=== PATIENT | male | born 1975 | race Caucasian/White ===

== ENCOUNTER 2016-05-18 08:25 | Emergency (ER) | payer MEDICAID ==
[~2016-05-18] VITALS: Wt 98.0 kg
[~2016-05-18 08:25] MED LIST: ASPI325T4 PO; AUG875 PO; CIPR500T4 PO; D-ME118S6 PO; DESL5TAB20 PO; IBUP-1542 PO; NASO17 NASAL; OLOP5DRO12 BOTH EYES; PRED20TA PO
[2016-05-18] MEDS ORDERED: FAMOTIDINE 20 MG TAB PO STA (09:25)
[2016-05-18] MEDS ORDERED: LIDOCAINE/MYLANTA 40 ML BTL PO STA (09:26)
[2016-05-18] MEDS ORDERED: BELLADONNA/PHENOBARBITAL TAB PO STA (09:26)
--- NOTE | 2016-05-18 09:57 | RADRPT ---
PROCEDURE: XR Chest. CLINICAL INDICATION: Abdominal pain. TECHNIQUE: Single frontal view of the chest was obtained COMPARISON: Chest x-ray 09/29/2049 11:56 p.m. FINDINGS: The soft tissues are normal. The bony elements are normal. The heart, left side aorta, cardiomedias tinal silhouette, pulmonary vasculature and hilar structures are normal. The lungs are clear. The co stophrenic angles are normal. There has been no change compared to the prior study. IMPRESSION: 1. Normal chest x-ray. RPTAT:AAJJ Physician Juany Date Time Electronically viewed and signed by Fortino Bashir Physician on 05/18/2016 09:57 /
[2016-05-18 10:25] LABS: BASOPHIL # 0.1 10^3/ul (0.0-0.1); BASOPHILS % 1.2 % (0.0-2.0); EOSINOPHILS # 0.4 10^3/ul (0.0-0.5); EOSINOPHILS % 5.2 % (0.0-7.0); HEMATOCRIT 44.1 % (42.0-52.0); HEMOGLOBIN 15.3 g/dl (14.0-18.0); LYMPHOCYTES # 1.8 10^3/ul (0.8-2.9); LYMPHOCYTES % 24.9 % (15.0-51.0); MEAN CORPUSCULAR HEMOGLOBIN 29.8 pg (29.0-33.0); MEAN CORPUSCULAR HGB CONC 34.7 g/dl (32.0-37.0); MEAN CORPUSCULAR VOLUME 85.7 fl (82.0-101.0); MEAN PLATELET VOLUME 10.8 fl (7.4-10.4); MONOCYTE # 0.6 10^3/ul (0.3-0.9); MONOCYTES % 8.2 % (0.0-11.0); NEUTROPHIL # 4.5 10^3/ul (1.6-7.5); NEUTROPHILS % 60.5 % (39.0-77.0); PLATELET COUNT 265 10^3/UL (140-440); RED BLOOD COUNT 5.15 10^6/ul (4.70-6.10); RED CELL DISTRIBUTION WIDTH 13.1 % (11.5-14.5); UNCORRECTED WBC 7.4 10^3/ul (4.8-10.8); WHITE BLOOD COUNT 7.4 10^3/ul (4.8-10.8)
[2016-05-18 10:31] LABS: ALBUMIN 4.4 g/dl (3.3-4.9); CHLORIDE 105 mmol/L (97-110); CONDITION 1
[2016-05-18 10:32] LABS: POTASSIUM 4.1 mmol/L (3.5-5.1); SODIUM 145 mmol/L (135-144)
[2016-05-18 10:34] LABS: ALBUMIN/GLOBULIN RATIO 1.41; AMYLASE 86 U/L (11-123); ANION GAP 17 (8-16); BILIRUBIN,INDIRECT 0.2 mg/dl (0-1.1); BILIRUBIN,TOTAL 0.2 mg/dl (0.2-1.3); BLOOD UREA NITROGEN 9 mg/dl (7-20); CARBON DIOXIDE 27 mmol/L (21-31); TOTAL PROTEIN 7.5 g/dl (6.1-8.1)
[2016-05-18 10:35] LABS: ALANINE AMINOTRANSFERASE 32 IU/L (13-69); ALKALINE PHOSPHATASE 122 IU/L (42-121); ASPARTATE AMINO TRANSFERASE 26 IU/L (15-46); CALCIUM 9.1 mg/dl (8.4-10.2); GLUCOSE 102 mg/dl (70-220)
[2016-05-18 10:46] LABS: TROPONIN-I < 0.012 ng/ml (0.00-0.12)
[2016-05-18] MEDS ORDERED: ONDANSETRON (ODT) 4 MG TAB ODT STA (10:49)
--- NOTE | 2016-05-18 10:49 | ERD ---
ER Documentation Chief Complaint Date/Time DATE: 05/18/16 TIME: 10:43 Chief Complaint GEN ABD PAIN AND ACID REFLUX WITH VOMITING FOR THE PAST 4 DAYS. HPI This is a 40-year-old Greek-speaking male with no past medical history that presents to the emergency department complaining of 4 days of epigastric discomfort which she states is intermittent and describes as a retrosternal burning sensation with increased acid production. He denies any chest pressure that radiates to the neck arm back or jaw. He denies any fever shaking or chills. He also states he has had a productive cough with whitish sputum. He denies any night sweats or weight loss. He denies any lower abdominal pain and no frequency urgency or dysuria. He states that his epigastric discomfort is worsened with food does not radiate to the back. He denies any alcohol use and does not take any medications. The patient also indicates that prior to arrival he had an episode of nonbloody nonbilious emesis but denied any diarrhea or constipation. ROS All systems reviewed and are negative except as per history of present illness. Medications Home Meds Active Scripts Olopatadine* (Patanol* Ophth) 0.1% - 5 Ml Drops, 1 DROP BOTH EYES BID for 7 Days , EA Prov:JACQUELINE HARO NP 06/13/15 Mometasone Furoate* (Nasonex*) 50 Mcg/[place] - 17 Gm [place].pump, 2 SPRAY NASAL BID, #1 BOTTLE TO EACH NOSTRIL Prov:JACQUELINE HARO NP 06/13/15 Dextromethorphan Hb-Promethazine Hcl (Promethazine DM Syrup) 180 Ml Syrup, 5 ML PO Q6H Y for COUGH, #4 OZ Prov:ABDIAS CONNORS MD 03/28/15 Ibuprofen* (Motrin*) 600 Mg Tab, 600 MG PO Q6, #16 TAB Prov:ABDIAS CONNORS MD 03/28/15 Ciprofloxacin Hcl* (Ciprofloxacin Hcl*) 500 Mg Tablet, 500 MG PO BID for 7 Days , TAB Prov:JOHN JONES PA-C 01/06/15 Amoxicillin-Clavulanate K* (Augmentin*) 875 Mg Tab, 875 MG PO BID for 7 Days, TAB Prov:JOHN JONES PA-C 01/06/15 Prednisone* (Prednisone*) 20 Mg Tab, 40 MG PO DAILY for 4 Days, TAB Prov:ABDIAS CONNORS MD 10/07/14 Amoxicillin-Clavulanate K* (Augmentin*) 875 Mg Tab, 875 MG PO BID for 7 Days, TAB Prov:ABDIAS CONNORS MD 10/07/14 Ibuprofen* (Motrin*) 600 Mg Tab, 600 MG PO Q8H Y for PAIN, #30 TAB Prov:MILES LEIGH 09/29/14 Desloratadine (Clarinex) 5 Mg Tablet, 5 MG PO DAILY, #30 TAB Prov:MILES LEIGH 09/29/14 Aspirin* (Aspirin*) 325 Mg Tablet, 325 MG PO DAILY, #30 TAB Prov:MILES LEIGH 09/29/14 Allergies Allergies: Coded Allergies: Penicillins (Unverified Allergy, Unknown, 06/13/15) PMhx/Soc Medical and Surgical Hx: pt denies Medical Hx, pt denies Surgical Hx History of Surgery: No Anesthesia Reaction: No Hx Neurological Disorder: No Hx Respiratory Disorders: No Hx Cardiac Disorders: No Hx Psychiatric Problems: No Hx Miscellaneous Medical Probl: No Hx Alcohol Use: No Hx Substance Use: No Hx Tobacco Use: No Physical Exam Vitals Vital Signs Date Time Temp Pulse Resp B/P Pulse Ox O2 Delivery O2 Flow Rate FiO2 05/18/16 08:30 98.6 78 21 140/89 99 Physical Exam Constitutional:Well-developed. Well-nourished. HEENT:Normocephalic. Atraumatic.Pupils were equal round reactive to light. Moist mucous membranes.No tonsillar exudates. Neck: No nuchal rigidity. No lymphadenopathy. No posterior cervical spine tenderness or step-offs. Respiratory: Not using accessory muscles of respiration.Lungs were clear to auscultation bilaterally. No rhonchi. No rales. No wheezing. Cardiovascular: Regular rate regular rhythm.No murmurs. No rubs were appreciated.S1, S2 normal. Distal pulses are palpable 2+ bilaterally. GI: Abdomen was soft. Mild epigastric tenderness with no tenderness in the right upper quadrant negative Ricketts sign. Non Distended. No pulsatile abdominal masses or bruits. No rebound. No guarding. Bowel sounds were present and normal. Muscle skeletal: Full range of motion of both the upper and lower extremities bilaterally.Normal muscle tone.No assymetrical calf tenderness or swelling. Skin: No petechia, no purpura. No lesions on the palms or the soles of the feet. No maculopapular rash. NEURO: Patient was alert, awake, orientated x3.No facial droop. Gait observed and normal with no ataxia.Speech had regular rate and rhythm. No focal neurological deficits. Result Diagram: 05/18/16 0950 Results 24 hrs Laboratory Tests Test 05/18/16 09:50 Alanine Aminotransferase (ALT/SGPT) 32IU/L Albumin 4.4g/dl Albumin/Globulin Ratio 1.41 Alkaline Phosphatase 122IU/L Amylase Level 86U/L Anion Gap 17 Aspartate Amino Transf (AST/SGOT) 26IU/L Basophils # 0.110^3/ul Basophils % 1.2% Blood Morphology Comment Blood Urea Nitrogen 9mg/dl Calcium Level 9.1mg/dl Carbon Dioxide Level 27mmol/L Chloride Level 105mmol/L Creatinine 0.70mg/dl Direct Bilirubin 0.00mg/dl Eosinophils # 0.410^3/ul Eosinophils % 5.2% Globulin 3.10g/dl Glucose Level 102mg/dl Hematocrit 44.1% Hemoglobin 15.3g/dl Indirect Bilirubin 0.2mg/dl Lipase 45U/L Lymphocytes # 1.810^3/ul Lymphocytes % 24.9% Mean Corpuscular Hemoglobin 29.8pg Mean Corpuscular Hemoglobin Concent 34.7g/dl Mean Corpuscular Volume 85.7fl Mean Platelet Volume 10.8fl Monocytes # 0.610^3/ul Monocytes % 8.2% Neutrophils # 4.510^3/ul Neutrophils % 60.5% Nucleated Red Blood Cells # 0.010^3/ul Nucleated Red Blood Cells % 0.0/100WBC Platelet Count 12485^3/UL Potassium Level 4.1mmol/L Red Blood Count 5.1510^6/ul Red Cell Distribution Width 13.1% Sodium Level 145mmol/L Total Bilirubin 0.2mg/dl Total Protein 7.5g/dl Troponin I < 0.012ng/ml White Blood Count 7.410^3/ul Current Medications Medications (Trade) Dose Ordered Sig/Marco A Route PRN Reason Start Time Stop Time Status Last Admin Dose Admin Famotidine (Pepcid) 20 mg ONCE STAT PO 05/18/16 09:25 05/18/16 09:26 DC 05/18/16 09:34 Miscellaneous Medication (Gi Cocktail (2)) 40 ml ONCE STAT PO 05/18/16 09:26 05/18/16 09:27 DC 05/18/16 09:34 Belladonna/ Phenobarbital () 2 tab ONCE STAT PO 05/18/16 09:26 05/18/16 09:27 DC 05/18/16 09:34 Procedures/MDM The patient presented to the emergency department with epigastric pain. My differential diagnosis included but was not limited to abdominal aortic aneurysm , choledocholithiasis, gallstone ileus, renal colic, pyelonephritis, pancreatitis, peptic ulcer disease, atypical myocardical infarction, mesenteric ischemia, GERD, pulmonary infarction. The patient had no cardiac risk factors and I did obtain a 12-lead EKG tracing to rule out atypical myocardial infarction. 12 Lead EKG tracing ordered and reviewed by myself showed: Normal sinus rhythm of 76 bpm and no arrhythmia. MA interval normal. QRS duration normal. No ST segment elevation No ST segment depression. No changes consistent with acute ischemia. There was no elevation of LFTs to suggest ductal obstruction, cholangitis, cholecystiitis or hepatitis. Given that the urinalysis did not show bilirubinuria, my suspicion for common duct obstruction or hepatitis was low. The patient was given a GI cocktail in the emergency department with Pepcid and had improvement of his symptoms. I did indicate to the patient that this could be a result of gastroesophageal reflux disease but in order to rule out peptic ulcer disease the patient will require an outpatient upper endoscopy. The patient felt comfortable being discharged home with Radha and Citlaly Fischer for the cough. The patient was discharged home in fair condition. They were instructed to return to the emergency department at any time if there was any worsening of their condition. The patient stated they would follow up with their PCP in the next 24-48 hours to initiate a suitable medication regimen under the care of their PCP as well as to allow their PCP to monitor any drug reactions. The patient was discharged home with prescriptions after they gave informed consent to the new medication. They were also fully informed by myself on the adverse effects and adverse drug interactions in order to provide adequate safeguards to prevent possible adverse reactions to medications. Departure Diagnosis: Primary Impression: Epigastric pain Condition: Serious LIZ ELLER May 18, 2016 10:49
[2016-05-18] MEDS ORDERED: OMEP40CA6 PO (10:52)
[2016-05-18] MEDS ORDERED: ONDA4TAB14 PO (10:52)
[2016-05-18 11:20] VITALS: BP 119/75; PULSE 60; RESP 20; TEMP 98.3
[2016-05-18 11:49] LABS: ADD UMIC NO; URINE BILIRUBIN (Dip) NEGATIVE (NEGATIVE); URINE BLOOD (Dip) NEGATIVE (NEGATIVE); URINE COLOR LT. YELLOW (YELLOW); URINE GLUCOSE (Dip) NEGATIVE (NEGATIVE); URINE KETONES (Dip) NEGATIVE (NEGATIVE); URINE LEUKOCYTE ESTERASE (Dip) NEGATIVE (NEGATIVE); URINE NITRITE (Dip) NEGATIVE (NEGATIVE); URINE TOTAL PROTEIN (Dip) NEGATIVE (NEGATIVE); URINE UROBILINOGEN (Dip) 0.2 E.U./dL (0.1-1.0)
== END 2016-05-18 11:20 | disposition home or self-care (01) ==
LOC: FTE 08:25
DX: R10.13 Epigastric pain (principal); R11.10 Vomiting, unspecified; Z79.82 Long term (current) use of aspirin
CPT/HCPCS: 36415; 71010; 80053; 81003; 82150; 83690; 84484; 85025; 93005; Z7502; Z7610

== ENCOUNTER 2016-06-09 19:44 | Emergency (ER) | payer MEDICAID ==
[~2016-06-09] VITALS: Ht 177.8 cm; Wt 106.5 kg
[~2016-06-09 19:44] MED LIST changes: +OMEP40CA6 PO; +ONDA4TAB14 PO
[2016-06-09 19:48] VITALS: Ht 177.8 cm; Wt 106.5 kg
[2016-06-09] MEDS ORDERED: CETI10CA PO (20:29)
[2016-06-09] MEDS ORDERED: ALBU8.5H3 INH (20:29)
[2016-06-09] MEDS ORDERED: GUAI473L22 PO (20:29)
[2016-06-09] MEDS ORDERED: IBUP-1542 PO (20:29)
--- NOTE | 2016-06-09 20:36 | ERD ---
ER Documentation Chief Complaint Date/Time DATE: 06/09/16 TIME: 20:34 Chief Complaint cough x 4 days HPI 40-year-old male presents to emergency department for complaints of cough for 4 days. Patient has been having dry cough, does not cough up any phlegm or blood. Patient does not have any shortness breath but has episodes of wheezing at times. Patient does not have any fever or chills. Patient does not have any chest pain or palpitations. Patient does not have any dizziness. Patient did not take any medications to symptoms. ROS All systems reviewed and are negative except as per history of present illness. Medications Home Meds Active Scripts Albuterol Sulfate* (Proair HFA*) 8.5 Gm Hfa.aer.ad, 2 PUFF INH Q4H Y for WHEEZING AND SOB, #1 INHALER Prov:LEEANNE JENKINS NP 06/09/16 Ibuprofen* (Motrin*) 600 Mg Tab, 600 MG PO Q6H Y for PAIN AND OR ELEVATED TEMP, #30 TAB Prov:LEEANNE JENKINS NP 06/09/16 Cetirizine Hcl* (Zyrtec*) 10 Mg Capsule, 10 MG PO DAILY, #30 TAB.CHEW Prov:LEEANNE JENKINS NP 06/09/16 Guaifenesin-Codeine Phosphate* (Guaifenesin* AC Cough Syrup) 473 Ml Liquid, 10 ML PO Q4H Y for COUGH, #120 ML Prov:LEEANNE JENKINS NP 06/09/16 Omeprazole* (Omeprazole*) 40 Mg Capsule.dr, 40 MG PO DAILY, #30 CAP Prov:LIZ ELLER 05/18/16 Ondansetron (Ondansetron Odt) 4 Mg Tab.rapdis, 4 MG PO Q6H Y for NAUSEA AND/OR VOMITING, #10 TAB Prov:LIZ ELLER 05/18/16 Olopatadine* (Patanol* Ophth) 0.1% - 5 Ml Drops, 1 DROP BOTH EYES BID for 7 Days , EA Prov:JACQUELINE HARO NP 06/13/15 Mometasone Furoate* (Nasonex*) 50 Mcg/[place] - 17 Gm [place].pump, 2 SPRAY NASAL BID, #1 BOTTLE TO EACH NOSTRIL Prov:JACQUELINE HARO INTERNET TECH[employer]OLOGY MANAGER 06/13/15 Dextromethorphan Hb-Promethazine Hcl (Promethazine DM Syrup) 180 Ml Syrup, 5 ML PO Q6H Y for COUGH, #4 OZ Prov:ABDIAS CONNORS MD 03/28/15 Ibuprofen* (Motrin*) 600 Mg Tab, 600 MG PO Q6, #16 TAB Prov:ABDIAS CONNORS MD 03/28/15 Ciprofloxacin Hcl* (Ciprofloxacin Hcl*) 500 Mg Tablet, 500 MG PO BID for 7 Days , TAB Prov:JOHN JONES PA-C 01/06/15 Amoxicillin-Clavulanate K* (Augmentin*) 875 Mg Tab, 875 MG PO BID for 7 Days, TAB Prov:JOHN JONES PA-C 01/06/15 Prednisone* (Prednisone*) 20 Mg Tab, 40 MG PO DAILY for 4 Days, TAB Prov:ABDIAS CONNORS MD 10/07/14 Amoxicillin-Clavulanate K* (Augmentin*) 875 Mg Tab, 875 MG PO BID for 7 Days, TAB Prov:ABDIAS CONNORS MD 10/07/14 Ibuprofen* (Motrin*) 600 Mg Tab, 600 MG PO Q8H Y for PAIN, #30 TAB Prov:MILES LEIGH 09/29/14 Desloratadine (Clarinex) 5 Mg Tablet, 5 MG PO DAILY, #30 TAB Prov:MILES LEIGH 09/29/14 Aspirin* (Aspirin*) 325 Mg Tablet, 325 MG PO DAILY, #30 TAB Prov:MILES LEIGH 09/29/14 Allergies Allergies: Coded Allergies: Penicillins (Unverified Allergy, Unknown, 06/13/15) PMhx/Soc Medical and Surgical Hx: pt denies Medical Hx, pt denies Surgical Hx History of Surgery: No Anesthesia Reaction: No Hx Neurological Disorder: No Hx Respiratory Disorders: No Hx Cardiac Disorders: No Hx Psychiatric Problems: No Hx Miscellaneous Medical Probl: No Hx Alcohol Use: No Hx Substance Use: No Hx Tobacco Use: No FmHx Family History: No coronary disease, No diabetes, No other Physical Exam Vitals Vital Signs Date Time Temp Pulse Resp B/P Pulse Ox O2 Delivery O2 Flow Rate FiO2 06/09/16 19:48 98.2 89 20 132/80 100 Physical Exam GENERAL: The patient is well developed and appropriate for usual state of health, in no apparent distress. CHEST: Clear to auscultation bilaterally. There are no rales, wheezes or rhonchi. HEART: Regular rate and rhythm. No murmurs, clicks, rubs or gallops. No S3 or S4. ABDOMEN: Soft, nontender and nondistended. Good bowel sounds. No rebound or guarding. No gross peritonitis. No gross organomegaly or masses. No Ricketts sign or McBurney point tenderness. BACK: No midline or flank tenderness. EXTREMITIES: Equal pulses bilaterally. There is no peripheral clubbing, cyanosis or edema. No focal swelling or erythema. Full range of motion. Grossly neurovascularly intact. NEURO: Alert and oriented. Cranial nerves 2-12 intact. Motor strength in all 4 extremities with 5/5 strength. Sensation grossly intact. Normal speech and gait. SKIN: There is no apparent rash or petechia. The skin is warm and dry. HEMATOLOGIC AND LYMPHATIC: There is no evidence of excessive bruising or lymphedema. No gross cervical, axillary, or inguinal lymphadenopathy. Procedures/MDM Medical Decision Making: Patient symptoms are most likely consistent with acute bronchitis, which viral in origin. There is low suspicion for Pneumonia at this time since patients lungs sounds are clear, patient O2 saturation is normal and patient doesnt show any respiratory distress. Radiology exam is not indicated at this time. There is low suspicion for other cardiopulmonary emergencies at this time such as CHF, Pulmonary Embolism, Pneumothorax, Aortic Aneurysm or any other cardiopulmonary emergencies at this time. There is low suspicion for sepsis. Patient appears well and is hemodynamically stable. Patient does not have any fever. Disposition: Home. Condition: Stable Prescriptions: Guaifenesin with codeine Zyrtec ibuprofen albuterol Instructions: Patient is advised to take medications as prescribed. Patient is advised to rest. Patient advised to increase fluid intake, do humidifier at home and if possible, do salt water gargles. Patient is advised that if symptoms are worse, shortness of breath, uncontrolled fever, stridor, vomiting, worst signs and symptoms to return to emergency department immediately. Otherwise, patient is advised to follow up with primary doctor in 5-7 days. Departure Diagnosis: Primary Impression: Acute bronchitis Bronchitis organism: unspecified organism Qualified Code: J20.9 - Acute bronchitis, unspecified organism Condition: Stable Patient Instructions: Bronchitis With Wheezing (Adult) LEEANNE JENKINS NP Jun 09, 2016 20:36
== END 2016-06-09 20:36 | disposition home or self-care (01) ==
LOC: E/R 19:44
DX: J20.9 Acute bronchitis, unspecified (principal)
CPT/HCPCS: 99283

== ENCOUNTER 2017-05-03 19:28 | Emergency (ER) | END 2017-05-04 03:22 | disposition left against medical advice (07) ==